=== PATIENT | female | born 1960 | race Caucasian/White ===

== ENCOUNTER 2016-11-23 11:49 | Emergency (ER) | payer OTHER ==
[~2016-11-23] VITALS: Ht 165.1 cm; Wt 65.0 kg
[2016-11-23 12:22] VITALS: Ht 165.1 cm; Wt 65.0 kg
--- NOTE | 2016-11-23 12:57 | ERA ---
ER Documentation Chief Complaint Date/Time DATE: 11/23/16 TIME: 12:56 Chief Complaint nose bleeding started this am. HPI The patient is a 56-year-old female, presenting to the ER because of intermittent left nostril bleeding that began about 9 AM this morning after blowing her nose. The bleeding has stopped. She had history of left nostril scar tissue and he is awaiting to see ENT physician. She denies syncope, near syncope, neck pain, chest pain, dyspnea, abdominal pain, vomiting, dysuria. She does not smoke nor drink Past medical history: Hypertension, atrial fibrillation, diabetes mellitus, allergic rhinitis Past surgical history: 2 ROS All systems reviewed and are negative except as per history of present illness. Allergies Allergies: Coded Allergies: No Known Allergy (Unverified , 08/27/14) PMhx/Soc History of Surgery: Yes () Anesthesia Reaction: No Hx Neurological Disorder: No Hx Respiratory Disorders: No Hx Cardiac Disorders: Yes (HTN, A FIB) Hx Psychiatric Problems: No Hx Miscellaneous Medical Probl: Yes (DM) Hx Alcohol Use: No Hx Substance Use: No Hx Tobacco Use: No Physical Exam Vitals Vital Signs Date Time Temp Pulse Resp B/P Pulse Ox O2 Delivery O2 Flow Rate FiO2 11/23/16 12:22 98.2 86 18 226/103 98 Physical Exam Const: No acute distress. Head: Atraumatic, normocephalic. Eyes: Normal conjunctiva, no nystagmus. ENT: Normal external ears, nose and mouth. Bilateral nostril edematous , no active bleeding Neck: Full range of motion, no meningismus. Resp: Clear to auscultation bilaterally. Cardio: Regular rate and rhythm, no murmurs. Abd: Soft, normal bowel sounds, non distended, non tender. Skin: No petechiae or rashes. Back: No midline or flank tenderness. Ext: No cyanosis, or edema. Procedures/MDM MEDICAL MAKING DECISION: The patient is a 56-year-old female, presenting with spontaneous anterior epistaxis. Her blood pressure improved and did not require any intervention. The differential diagnoses considered include but are not limited to posterior epistaxis, nasal polyps, malignancy, blood disorder Departure Diagnosis: Primary Impression: Epistaxis Additional Impression: Acute anterior epistaxis RENATA HAQ MD Nov 23, 2016 12:57
[2016-11-23 13:46] VITALS: BP 158/76; PULSE 78; RESP 16; TEMP 98.3
== END 2016-11-23 13:48 | disposition home or self-care (01) ==
LOC: E/R 11:49
DX: R04.0 Epistaxis (principal); I10 Essential (primary) hypertension; E11.9 Type 2 diabetes mellitus without complications
CPT/HCPCS: 99282

== ENCOUNTER 2017-08-02 13:35 | Emergency (ER) | payer OTHER ==
[~2017-08-02] VITALS: Ht 157.5 cm; Wt 66.0 kg
[2017-08-02 13:37] VITALS: Ht 157.5 cm; Wt 66.0 kg
[2017-08-02] MEDS ORDERED: BENA20TA48 PO (14:41)
[2017-08-02] MEDS ORDERED: DILT120C45 PO (14:41)
[2017-08-02] MEDS ORDERED: ATEN50TA PO (14:41)
[2017-08-02] MEDS ORDERED: GLIP-95 PO (14:41)
[2017-08-02] MEDS ORDERED: METF850T PO (14:41)
--- NOTE | 2017-08-02 14:47 | ERD ---
ER Documentation Chief Complaint Chief Complaint nosebleed since 11am after sneeze. HPI The patient is a 56-year-old female, presenting to the ER because of intermittent left nostril bleeding that began about 11 AM this morning after blowing her nose. The bleeding has stopped intermittently. She denies syncope , near syncope, neck pain, chest pain, dyspnea, abdominal pain, vomiting, dysuria. She does not smoke nor drink Past medical history: Hypertension, atrial fibrillation, diabetes mellitus, allergic rhinitis Past surgical history: 2 ROS All systems reviewed and are negative except as per history of present illness. Medications Home Meds Active Scripts Cephalexin* (Keflex*) 500 Mg Capsule, 500 MG PO QID for 5 Days, CAP Prov:RENATA HAQ MD 08/02/17 Reported Medications Diltiazem Hcl (Diltiazem Er) 120 Mg Capsule.cr, 120 MG PO DAILY, #90 08/02/17 Metformin Hcl* (Metformin Hcl*) 850 Mg Tablet, 850 MG PO BID, #270 08/02/17 Benazepril Hcl* (Benazepril Hcl*) 20 Mg Tablet, 20 MG PO DAILY, #90 08/02/17 Atenolol* (Atenolol*) 50 Mg Tablet, 50 MG PO DAILY, #90 08/02/17 Glipizide* (Glipizide*) 10 Mg Tablet, 10 MG PO DAILY, #180 08/02/17 Allergies Allergies: Coded Allergies: No Known Allergy (Unverified , 08/27/14) PMhx/Soc History of Surgery: Yes () Anesthesia Reaction: No Hx Neurological Disorder: No Hx Respiratory Disorders: No Hx Cardiac Disorders: Yes (HTN, A FIB) Hx Psychiatric Problems: No Hx Miscellaneous Medical Probl: Yes (DM) Hx Alcohol Use: No Hx Substance Use: No Hx Tobacco Use: No Physical Exam Vitals Vital Signs Date Time Temp Pulse Resp B/P Pulse Ox O2 Delivery O2 Flow Rate FiO2 08/02/17 16:32 98.6 88 18 178/93 96 Room Air 08/02/17 13:37 98.6 91 18 212/102 96 Physical Exam Const: No acute distress. Head: Atraumatic. Eyes: Normal Conjunctiva. ENT: Normal External Ears, Nose and Mouth.Left nostril with active bleeding, no posterior pharyngeal bleeding. Neck: Full range of motion. No meningismus. Resp: Clear to auscultation bilaterally. Cardio: Regular rate and rhythm. Abd: Soft, non distended, normal bowel sounds, non tender. Skin: No petechiae or rashes. Back: No midline or flank tenderness. Ext: No cyanosis, or edema. Neur: Awake and alert. No focal deficit Psych: Normal Mood and Affect. Result Diagram: 08/02/17 1540 08/02/17 1540 Results 24 hrs Laboratory Tests Test 08/02/17 15:40 White Blood Count 8.610^3/ul Red Blood Count 4.7210^6/ul Hemoglobin 13.8g/dl Hematocrit 41.7% Mean Corpuscular Volume 88.3fl Mean Corpuscular Hemoglobin 29.2pg Mean Corpuscular Hemoglobin Concent 33.1g/dl Red Cell Distribution Width 12.3% Platelet Count 34801^3/UL Mean Platelet Volume 9.5fl Neutrophils % % Lymphocytes % % Monocytes % % Eosinophils % % Basophils % % Nucleated Red Blood Cells % 0.0/100WBC Neutrophils # 10^3/ul Lymphocytes # 10^3/ul Monocytes # 10^3/ul Eosinophils # 10^3/ul Basophils # 10^3/ul Nucleated Red Blood Cells # 10^3/ul Sodium Level 138mmol/L Potassium Level 4.4mmol/L Chloride Level 96mmol/L Carbon Dioxide Level 28mmol/L Anion Gap 18 Blood Urea Nitrogen 14mg/dl Creatinine 0.63mg/dl Glucose Level 310mg/dl Calcium Level 9.7mg/dl Procedures/[facility] MEDICAL MAKING DECISION: The patient is a 57-year-old female, presenting with left nostril anterior epistaxis. It was packed with Rhino rocket with any difficulty. Procedure: The left nostril blood clot was evacuated. It was packed with Rhino Rocket with any difficulty Departure Diagnosis: Primary Impression: Epistaxis Condition: Good Comments I discussed the findings with the patient. I advised the patient to return to the ER for nasal repacking. The blood pressure improved without any intervention. She was discharged with Keflex Disclaimer: Inadvertent spelling and grammatical errors are likely due to EHR/ dictation software use and do not reflect on the overall quality of patient care. Also, please note that the electronic time recorded on this note does not necessarily reflect the actual time of the patient encounter. RENATA HAQ MD Aug 02, 2017 14:47 RENATA HAQ MD Aug 02, 2017 14:47
[2017-08-02 15:46] LABS: HEMATOCRIT 41.7 % (37.0-47.0); HEMOGLOBIN 13.8 g/dl (12.0-16.0); MEAN CORPUSCULAR HEMOGLOBIN 29.2 pg (29.0-33.0); MEAN CORPUSCULAR HGB CONC 33.1 g/dl (32.0-37.0); MEAN CORPUSCULAR VOLUME 88.3 fl (82.0-101.0); MEAN PLATELET VOLUME 9.5 fl (7.4-10.4); PLATELET COUNT 302 10^3/UL (140-415); RED BLOOD COUNT 4.72 10^6/ul (4.20-5.40); RED CELL DISTRIBUTION WIDTH 12.3 % (11.5-14.5); WHITE BLOOD COUNT 8.6 10^3/ul (4.8-10.8)
[2017-08-02 16:12] LABS: CALCIUM 9.7 mg/dl (8.4-10.2); CREATININE 0.63 mg/dl (0.44-1.00); POTASSIUM 4.4 mmol/L (3.5-5.1)
[2017-08-02] MEDS ORDERED: CEPH-443 PO (16:21)
[2017-08-02 16:32] VITALS: BP 178/93; PULSE 88; RESP 18; TEMP 98.6
== END 2017-08-02 16:34 | disposition home or self-care (01) ==
LOC: E/R 13:35
DX: R04.0 Epistaxis (principal); I10 Essential (primary) hypertension; E11.9 Type 2 diabetes mellitus without complications; Z79.84 Long term (current) use of oral hypoglycemic drugs
CPT/HCPCS: 80048; 85025; 99283

== ENCOUNTER 2017-08-04 09:30 | Emergency (ER) | payer OTHER ==
[~2017-08-04] VITALS: Ht 157.5 cm; Wt 65.0 kg
[~2017-08-04 09:30] MED LIST: ATEN50TA PO; BENA20TA48 PO; CEPH-443 PO; DILT120C45 PO; GLIP-95 PO; METF850T PO
[2017-08-04 09:34] VITALS: Ht 157.5 cm; Wt 65.0 kg
[2017-08-04] MEDS ORDERED: FLUT9.9S NASAL (10:45)
--- NOTE | 2017-08-04 10:55 | ERD ---
ER Documentation Chief Complaint Chief Complaint needs rhino rocket removed placed 08/02/17 HPI 57-year-old female presented ED today for removal of nasal packing. Patient was seen here yesterday for intermittent epistaxis of the left nostril. Nasal packing was placed in the ER yesterday. Patient stated that she still notices occasional blood in her spit. Patient has history of allergic rhinitis, takes Benadryl or Zyrtec occasionally. She also uses a nasal spray occasionally, but does not know the name of the spray. Denies fever or chills. Denies dizziness or syncope. ROS All systems reviewed and are negative except as per history of present illness. Medications Home Meds Active Scripts Fluticasone Propionate (Flonase Allergy Relief) 9.9 Ml [place].susp, 1 SPRAY NASAL DAILY, #1 BOTTLE TO EACH NOSTRIL Prov:ALVARO CHARLES NP 08/04/17 Cephalexin* (Keflex*) 500 Mg Capsule, 500 MG PO QID for 5 Days, CAP Prov:RENATA HAQ MD 08/02/17 Reported Medications Diltiazem Hcl (Diltiazem Er) 120 Mg Capsule.cr, 120 MG PO DAILY, #90 08/02/17 Metformin Hcl* (Metformin Hcl*) 850 Mg Tablet, 850 MG PO BID, #270 08/02/17 Benazepril Hcl* (Benazepril Hcl*) 20 Mg Tablet, 20 MG PO DAILY, #90 08/02/17 Atenolol* (Atenolol*) 50 Mg Tablet, 50 MG PO DAILY, #90 08/02/17 Glipizide* (Glipizide*) 10 Mg Tablet, 10 MG PO DAILY, #180 08/02/17 Allergies Allergies: Coded Allergies: No Known Allergy (Unverified , 08/27/14) PMhx/Soc History of Surgery: Yes () Anesthesia Reaction: No Hx Neurological Disorder: No Hx Respiratory Disorders: No Hx Cardiac Disorders: Yes (HTN, A FIB) Hx Psychiatric Problems: No Hx Miscellaneous Medical Probl: Yes (DM) Hx Alcohol Use: No Hx Substance Use: No Hx Tobacco Use: No Physical Exam Vitals Vital Signs Date Time Temp Pulse Resp B/P Pulse Ox O2 Delivery O2 Flow Rate FiO2 08/04/17 09:34 98.0 88 18 136/74 97 Physical Exam General: Well-developed, well-nourished, conscious and coherent, in no distress Skin: Warm and dry without rash, good texture and turgor Head: Normocephalic without evidence of trauma Eyes: Sclera and conjunctivae normal; pupils equal, round, and reactive to light; extraocular movements are intact Nose/Face: Nasal packing in the left nostril, no active bleeding. Mouth/throat: Mucous membranes are moist. Posterior pharynx clear without erythema or exudates Neck: Supple without meningismus or adenopathy. Carotids are equal. Trachea midline. No bruits or JVD Chest: Normal AP diameter. Good expansion without retractions. Nontender. Lungs are clear to auscultate bilaterally with good tidal volume Heart: Regular rate and rhythm. No murmur, rub, or gallops heard Extremities: Full range of motion. Good strength bilaterally. No clubbing, cyanosis, or edema. Peripheral pulses are intact. Sensation intact Neuro: Alert and oriented 4, GCS 15. Cranial nerves grossly intact. Motor and sensory exams nonfocal. Moves all extremities. Speech clear. Gait normal Procedures/MDM Nasal packing removed from the left nostril without difficulty. Scant blood noted on the packing. Nasal mucosa erythematous swollen in the anterior portion of the nostril, no active bleeding noted. Patient has history of allergic rhinitis, likely because of her inflammation of the nasal mucosa and epistaxis. Low suspicion for tumor. Patient has appointment with the ENT in 1 month. Advised patient to follow-up with her ENT. I also advised patient to use Zyrtec daily for her allergy symptoms, as well as using Flonase daily. Patient appears well, stable for discharge and outpatient management. Medical decision making shared with patient and family. Education provided to patient and family. Patient and family expressed understanding of the plan. Medications on discharge: Flonase. Follow-up: Primary care provider in 2-3 days or return to ED if worse. Disclaimer: Inadvertent spelling and grammatical errors are likely due to EHR/ dictation software use and do not reflect on the overall quality of patient care. Also, please note that the electronic time recorded on this note does not necessarily reflect the actual time of the patient encounter. Departure Diagnosis: Primary Impression: Encounter for removal of nasal packing Additional Impression: Allergic rhinitis Chronicity: chronic Allergic rhinitis trigger: unspecified Allergic rhinitis seasonality: unspecified seasonality Qualified Code: J30.9 - Chronic allergic rhinitis, unspecified seasonality, unspecified trigger Condition: Stable Patient Instructions: Nosebleed, Allergic Rhinitis Additional Instructions: Call your primary care doctor TOMORROW for an appointment during the next 2-3 days.See the doctor sooner or return here if your condition worsens before your appointment time. Follow up with ENT as scheduled. You may use Flonase or Nasonex spray daily. ALVARO CHARLES NP Aug 04, 2017 10:55
== END 2017-08-04 10:50 | disposition home or self-care (01) ==
LOC: FTE 09:30
DX: J30.9 Allergic rhinitis, unspecified (principal); E11.9 Type 2 diabetes mellitus without complications; I10 Essential (primary) hypertension; Z79.84 Long term (current) use of oral hypoglycemic drugs
CPT/HCPCS: 99283